=== PATIENT | female | born 1965 ===

== ENCOUNTER 2022-02-03 05:42 | Day surgery (SDC) | payer OTHER ==
[~2022-02-03 05:42] MED LIST: CALCIUM500 M2 PO; MAGNESIUM200 MG PO; MULTIPLE VITAM1 EAC2 PO
[2022-02-03] MEDS ORDERED: METHYLERGO0.2 MG/11 PO (12:49)
[2022-02-03] MEDS ORDERED: DICLOFENAC POTA50 MG PO (12:49)
== END 2022-02-03 16:00 | disposition home or self-care (01) ==
LOC: CIR.AMB 05:42
PROVIDERS: ATTEND Obstetrics & Gynecology
DX: D25.0 Submucous leiomyoma of uterus (principal); Z91.013 Allergy to seafood; E78.5 Hyperlipidemia, unspecified; G43.909 Migraine, unspecified, not intractable, without status migrainosus